=== PATIENT | male | born 1970 | race Caucasian/White ===

== ENCOUNTER 2024-09-10 08:26 | Emergency (ER) | payer BC ==
[2024-09-10] MEDS ORDERED: Lidocaine 4% Patch ONE (08:50)
[2024-09-10] MEDS ORDERED: Cyclobenzaprine 10 MG TAB ONE (08:50)
== END 2024-09-10 09:00 | disposition home or self-care (01) ==
LOC: MADERS 08:26
DX: S16.1XXA Strain of muscle, fascia and tendon at neck level, initial encounter (principal); E11.9 Type 2 diabetes mellitus without complications; E78.00 Pure hypercholesterolemia, unspecified; I10 Essential (primary) hypertension; Z79.84 Long term (current) use of oral hypoglycemic drugs; Z79.899 Other long term (current) drug therapy; X58.XXXA Exposure to other specified factors, initial encounter
CPT/HCPCS: 99283

== ENCOUNTER 2024-09-12 08:17 | Emergency (ER) | payer BC ==
[2024-09-12] MEDS ORDERED: Ondansetron PF 4 MG/2 ML Vial ONE (08:51)
[2024-09-12] MEDS ORDERED: Methocarbamol 1 GM (10 mL) VIAL ONE (08:51)
[2024-09-12] MEDS ORDERED: Morphine 4 MG/ML VIAL ONE (08:52)
[2024-09-12] MEDS ORDERED: Sodium Chloride 0.9% 100 ML ONE (08:52)
[2024-09-12] MEDS ORDERED: Lidocaine 4% Patch ONE (08:52)
[2024-09-12] MEDS ORDERED: Sodium Chloride 0.9% 1,000 ML ONE (08:52)
[2024-09-12] MEDS ORDERED: Iopamidol 370 76% 100 ML VIAL ONE (09:00)
[2024-09-12 09:09] LABS: Hematocrit 54.2 % (42.0-52.0); Hemoglobin 16.6 g/dL (14.0-18.0); Mean Corpuscular HGB CONC 30.7 g/dL (32.0-36.0); Mean Corpuscular Hemoglobin 29.1 pg (27.0-31.0); Mean Corpuscular Volume 94.9 fl (78.0-98.0); Mean Platelet Volume 6.6 fL (7.4-10.4); Platelet Count 318 10x3/uL (130-400); RBC Distribution Width 12.4 % (11.5-14.5); Red Blood Cell (RBC) Count 5.71 mill/uL (4.70-6.10); White Blood Cell (WBC) Count 11.5 10x3/uL (4.8-10.8)
[2024-09-12 09:18] LABS: Troponin I Less than 0.010 ng/mL (< 0.028)
[2024-09-12 09:23] LABS: ALT (SGPT) 37 U/L (8-55); AST (SGOT) 39 U/L (5-34); Albumin 3.5 g/dL (3.5-5.0); Alkaline Phosphatase 82 U/L (40-110); Anion Gap 30 mmol/L (10-20); BUN (Urea Nitrogen) 18 mg/dL (8.4-25.7); Bilirubin, Total 0.5 mg/dL (0.2-1.2); Calc. Creatinine Clearance 0 mL/min (70-130); Calcium 9.3 mg/dL (7.8-10.44); Carbon Dioxide 12 mmol/L (22-29); Chloride 100 mmol/L (98-107); Estimated GFR 78; Globulin 4.1 g/dL (2.4-3.5); Glucose 126 mg/dL (70-105); Potassium 4.9 mmol/L (3.5-5.1); Protein, Total 7.6 g/dL (6.0-8.3); Sodium 137 mmol/L (136-145)
[2024-09-12 09:52] LABS: Band 4 % (5-11); Lymphocytes 6 % (21-51); MDiff Complete? YES; Monocytes 5 % (0-10); Neutrophil 85 % (42-75); Platelet Adequacy Comment Appears Adequate
[2024-09-12 10:36] LABS: Base Excess-Venous -13.5 mmol/L (-2.0 to 3.0); Bicarbonate (HCO3v) 15.7 mmol/L (22.0-28.0); CO2 Tension (PvCO2) 46.5 mmHg (42.0-51.0); Calcium, Ionized 1.17 mmol/L (1.15-1.33); Chloride 107 mmol/L (98-107); Hemoglobin - Calc 18.9 g/dL (14.0-18.0); Potassium 4.4 mmol/L (3.5-5.1); Sodium 135 mmol/L (138-145); T. Carbon Dioxide 17.1 mmol/L (22.0-28.0); vO2 Saturation-calc 85.8 % (60.0-85.0)
[2024-09-12 11:08] LABS: Bilirubin Small (Negative); Blood, Urine Small (Negative); Clarity Clear (Clear); Glucose, Urine (Dipstick) 500 mg/dL (Negative); Ketone, Urine > or equal to 80 mg/dL (Negative); Leukocyte Negative (Negative); Nitrite Negative (Negative); Protein, Urine (Dipstick) 100 mg/dL (Neg-Trace); Urobilinogen 0.2 mg/dL (Less than 2); pH, Urine 5.5 (5.0-9.0)
[2024-09-12 11:10] LABS: Specific Gravity, Urine 1.038 (1.002-1.036)
[2024-09-12 11:17] LABS: Amphetamine Not Detected (NotDetected); Bacteria/HPF None Seen HPF (None Seen); Barbiturates Screen Not Detected (NotDetected); Benzodiazepine Screen Not Detected (NotDetected); CAUTI Indications for Culture < 2yrs of age; Cocaine Metabolite Screen Not Detected (NotDetected); Methadone Not Detected (NotDetected); Methamphetamine Not Detected (NotDetected); Opiate Screen Detected (NotDetected); Oxycodone Screen Not Detected (NotDetected); Phencyclidine (PCP) Not Detected (NotDetected); RBC/HPF 0-3 HPF (0-3); Squamous Epithelial 0-3 HPF (0-3); THC/Cannabinoid Screen Not Detected (NotDetected); Tricyclic Screen Not Detected (NotDetected); WBC/HPF 0-3 HPF (0-3)
[2024-09-12 11:18] LABS: Urine Culture Reflex Yes Yes
== END 2024-09-12 12:20 | disposition home or self-care (01) ==
LOC: MADERS 08:17
DX: M54.2 Cervicalgia (principal); E11.10 Type 2 diabetes mellitus with ketoacidosis without coma; E78.5 Hyperlipidemia, unspecified; I10 Essential (primary) hypertension; Z86.73 Personal history of transient ischemic attack (TIA), and cerebral infarction without residual deficits; Z79.82 Long term (current) use of aspirin; Z79.84 Long term (current) use of oral hypoglycemic drugs; Z79.899 Other long term (current) drug therapy
CPT/HCPCS: 72126; 80053; 80306; 80307; 81001; 82330; 82803; 84484; 85025; 87086; 93005; 96365; 96375; J2272; J2405; J2800; J7030; Q9967

== ENCOUNTER 2024-10-04 13:38 | Inpatient (IN) | payer BC ==
[2024-10-04 14:06] VITALS: BMI 20.9
[2024-10-04] MEDS ORDERED: Benzocaine/Menthol 1 LOZ LOZ PO PRN (14:49)
[2024-10-04] MEDS ORDERED: traMADol HCl 50 MG TAB PO PRN (14:49)
[2024-10-04] MEDS ORDERED: Glucagon 1 MG/ML KIT IM PRN (14:51)
[2024-10-04] MEDS ORDERED: Dextrose 50% Abboject 50 ML SYRINGE SLOW IVP PRN (14:51)
[2024-10-04] MEDS ORDERED: Insulin Regular, Human 100 UNIT/ML 10 ML VIAL SC PRN (14:51)
[2024-10-04] MEDS ORDERED: DICLOFENAC SODIUM 25 MG PO PRN (15:12)
[2024-10-04] MEDS: Cefepime 2 GM VIAL IVPB SCH (15:42)
[2024-10-04] MEDS: Cefepime 2 GM in Sodium Chloride 0.9% 100 ML IVPB SCH (17:22)
[2024-10-04] MEDS: Insulin Regular, Human 100 UNIT/ML 10 ML VIAL SC PRN (17:23)
[2024-10-04] MEDS: Enoxaparin 40 MG (0.4 mL) SYRINGE SC SCH (20:19)
[2024-10-05] MEDS: Acetaminophen 325 MG TAB PO PRN (05:39)
[2024-10-05] MEDS: Pantoprazole 40 MG DR.TAB PO SCH (08:25)
[2024-10-05] MEDS: glipiZIDE 5 MG TAB PO SCH (08:25)
[2024-10-05] MEDS: Empagliflozin 25 MG TAB PO SCH (08:26)
[2024-10-05] MEDS: Aspirin Chewable 81 MG TAB PO SCH (08:26)
[2024-10-05] MEDS: traMADol HCl 50 MG TAB PO PRN (19:23)
[2024-10-05] MEDS: Atorvastatin Calcium 40 MG TAB PO SCH (20:36)
[2024-10-09] MEDS ORDERED: Senokot S 8.6-50 MG TAB PO PRN (11:55)
[2024-10-10] MEDS: metFORMIN 850 MG TAB PO SCH (17:00)
[2024-10-11 05:30] LABS: Hematocrit 41.5 % (42.0-52.0); Hemoglobin 13.1 g/dL (14.0-18.0); Mean Corpuscular HGB CONC 31.6 g/dL (32.0-36.0); Mean Corpuscular Hemoglobin 29.6 pg (27.0-31.0); Mean Corpuscular Volume 93.9 fl (78.0-98.0); Platelet Count 589 10x3/uL (130-400); RBC Distribution Width 13.2 % (11.5-14.5); Red Blood Cell (RBC) Count 4.43 mill/uL (4.70-6.10); White Blood Cell (WBC) Count 11.3 10x3/uL (4.8-10.8)
[2024-10-11 05:48] LABS: Anion Gap 15 mmol/L (10-20); BUN (Urea Nitrogen) 17 mg/dL (8.4-25.7); Calc. Creatinine Clearance 119 mL/min (70-130); Calcium 9.1 mg/dL (7.8-10.44); Carbon Dioxide 23 mmol/L (22-29); Chloride 101 mmol/L (98-107); Estimated GFR 104; Glucose 197 mg/dL (70-105); Potassium 4.1 mmol/L (3.5-5.1); Sodium 135 mmol/L (136-145)
[2024-10-11] MEDS: TIRZEPATIDE 12.5 MG/0.5 ML SC SCH (08:25)
[2024-10-14] MEDS: Lantiseptic Ointment 130 GM JAR TOP PRN (09:54)
[2024-10-14] MEDS: Lantiseptic Ointment 130 GM JAR TOP SCH (20:25)
[2024-10-18 05:28] LABS: Anion Gap 16 mmol/L (10-20); BUN (Urea Nitrogen) 21 mg/dL (8.4-25.7); Calc. Creatinine Clearance 116 mL/min (70-130); Calcium 9.5 mg/dL (7.8-10.44); Carbon Dioxide 25 mmol/L (22-29); Chloride 104 mmol/L (98-107); Estimated GFR 103; Glucose 119 mg/dL (70-105); Potassium 4.2 mmol/L (3.5-5.1); Sodium 141 mmol/L (136-145)
[2024-10-18 05:47] LABS: Hematocrit 43.1 % (42.0-52.0); Hemoglobin 13.5 g/dL (14.0-18.0); Mean Corpuscular HGB CONC 31.3 g/dL (32.0-36.0); Mean Corpuscular Hemoglobin 29.3 pg (27.0-31.0); Mean Corpuscular Volume 93.7 fl (78.0-98.0); Mean Platelet Volume 6.4 fL (7.4-10.4); Platelet Count 437 10x3/uL (130-400); RBC Distribution Width 13.2 % (11.5-14.5); White Blood Cell (WBC) Count 8.9 10x3/uL (4.8-10.8)
[2024-10-21] MEDS: Meloxicam 7.5 MG TAB PO SCH (15:42)
[2024-10-22] MEDS: Meloxicam 7.5 MG TAB PO SCH (09:13)
[2024-10-25 06:34] LABS: Hematocrit 40.4 % (42.0-52.0); Hemoglobin 12.8 g/dL (14.0-18.0); Mean Corpuscular HGB CONC 31.7 g/dL (32.0-36.0); Mean Corpuscular Hemoglobin 29.9 pg (27.0-31.0); Mean Corpuscular Volume 94.3 fl (78.0-98.0); Mean Platelet Volume 6.3 fL (7.4-10.4); Platelet Count 361 10x3/uL (130-400); RBC Distribution Width 13.4 % (11.5-14.5); Red Blood Cell (RBC) Count 4.29 mill/uL (4.70-6.10); White Blood Cell (WBC) Count 8.9 10x3/uL (4.8-10.8)
[2024-10-25 06:49] LABS: Anion Gap 15 mmol/L (10-20); BUN (Urea Nitrogen) 16 mg/dL (8.4-25.7); Calc. Creatinine Clearance 136 mL/min (70-130); Calcium 9.2 mg/dL (7.8-10.44); Carbon Dioxide 23 mmol/L (22-29); Chloride 104 mmol/L (98-107); Estimated GFR 107; Glucose 133 mg/dL (70-105); Potassium 4.1 mmol/L (3.5-5.1); Sodium 138 mmol/L (136-145)
[2024-10-26 10:46] VITALS: BMI 22.1
[2024-10-30 19:07] VITALS: BP 114/77
[2024-10-31 07:10] VITALS: TEMP 97.4
== END 2024-10-31 09:15 | disposition home or self-care (01) | DRG 945 ==
LOC: MADMS 13:38
PROVIDERS: ADMIT Family Medicine; ATTEND Family Medicine
PROC: F07Z9ZZ Gait Training/Functional Ambulation Treatment (ICD-10-PCS; principal; 2024-10-04)
DX: R53.81 Other malaise (principal); L89.153 Pressure ulcer of sacral region, stage 3; R78.81 Bacteremia; M86.8X7 Other osteomyelitis, ankle and foot; E11.69 Type 2 diabetes mellitus with other specified complication; B95.61 Methicillin susceptible Staphylococcus aureus infection as the cause of diseases classified elsewhere; E11.621 Type 2 diabetes mellitus with foot ulcer; L97.519 Non-pressure chronic ulcer of other part of right foot with unspecified severity; I10 Essential (primary) hypertension; R26.9 Unspecified abnormalities of gait and mobility; M17.11 Unilateral primary osteoarthritis, right knee; Z86.73 Personal history of transient ischemic attack (TIA), and cerebral infarction without residual deficits
CPT/HCPCS: 36415; 36416; 80048; 85027; J0692; J1650; J1815

== ENCOUNTER 2024-11-23 17:25 | Inpatient (IN) | payer BC ==
[2024-11-23] MEDS ORDERED: traMADol HCl 50 MG TAB PO PRN (21:39)
[2024-11-23] MEDS ORDERED: Acetaminophen 500 MG TAB PO PRN (21:39)
[2024-11-23] MEDS ORDERED: Dextrose 50% Abboject 50 ML SYRINGE SLOW IVP PRN (21:41)
[2024-11-23] MEDS ORDERED: Glucagon 1 MG/ML KIT IM PRN (21:41)
[2024-11-23 23:40] VITALS: BMI 22.4
[2024-11-24 05:08] LABS: #Basophils 0.2 thou/uL (0.0-0.2); #Eosinophils 0.1 thou/uL (0.0-0.7); #Lymphocytes 3.5 thou/uL (1.20-3.40); #Monocytes 1.3 thou/uL (0.11-0.59); #Neutrophils 6.8 thou/uL (1.40-6.50); %Basophils 1.3 % (0.0-1.0); %Lymphocytes 29.6 % (21.0-51.0); %Monocytes 11.1 % (0.0-10.0); %Neutrophils 57.1 % (42.0-75.0); Hematocrit 40.5 % (42.0-52.0); Hemoglobin 13.2 g/dL (14.0-18.0); Mean Corpuscular HGB CONC 32.6 g/dL (32.0-36.0); Mean Corpuscular Hemoglobin 29.7 pg (27.0-31.0); Mean Corpuscular Volume 90.8 fl (78.0-98.0); Mean Platelet Volume 5.7 fL (7.4-10.4); Platelet Count 837 10x3/uL (130-400); RBC Distribution Width 14.7 % (11.5-14.5); Red Blood Cell (RBC) Count 4.46 mill/uL (4.70-6.10)
[2024-11-24 05:25] LABS: ALT (SGPT) 22 U/L (Less than 45); AST (SGOT) 26 U/L (11-34); Albumin 3.4 g/dL (3.1-4.5); Alkaline Phosphatase 99 U/L (40-110); Anion Gap 14 mmol/L (10-20); BUN (Urea Nitrogen) 25 mg/dL (8.4-25.7); Bilirubin, Total 0.3 mg/dL (0.3-1.2); Calc. Creatinine Clearance 148 mL/min (70-130); Calcium 9.5 mg/dL (7.8-10.44); Carbon Dioxide 21 mmol/L (22-29); Chloride 106 mmol/L (98-107); Estimated GFR 110; Globulin 4.2 g/dL (2.4-3.5); Glucose 173 mg/dL (70-105); Potassium 4.1 mmol/L (3.5-5.1); Protein, Total 7.6 g/dL (6.0-8.3); Sodium 137 mmol/L (136-145)
[2024-11-24] MEDS ORDERED: Polyethylene Glycol 3350 17 GM Packet PO PRN (06:02)
[2024-11-24] MEDS ORDERED: Ondansetron ODT 4 MG TAB PO PRN (06:02)
[2024-11-24] MEDS: Enoxaparin 40 MG (0.4 mL) SYRINGE SC SCH (08:13)
[2024-11-24] MEDS: Aspirin Chewable 81 MG TAB PO SCH (08:13)
[2024-11-24] MEDS: Pantoprazole 40 MG DR.TAB PO SCH (08:13)
[2024-11-24] MEDS: Empagliflozin 25 MG TAB PO SCH (08:13)
[2024-11-24] MEDS: glipiZIDE 5 MG TAB PO SCH (08:13)
[2024-11-24] MEDS: metFORMIN 850 MG TAB PO SCH ×2 (08:14→20:03)
[2024-11-24] MEDS: FLU (Fluarix Triv) TS24-25(6MOS UP)/PF 45 MCG/0.5 ML Syringe IM ONE (08:15)
[2024-11-24] MEDS: Insulin Regular, Human 100 UNIT/ML 10 ML VIAL SC PRN (08:41)
[2024-11-24] MEDS ORDERED: Atorvastatin Calcium 40 MG TAB PO SCH (09:00)
[2024-11-24] MEDS: DAPTOmycin 500 MG in Sodium Chloride 0.9% 100 ML IVPB SCH (14:28)
[2024-11-26] MEDS: DICLOFENAC 25 MG PO SCH (11:54)
[2024-11-29] MEDS ORDERED: Acetaminophen 500 MG TAB PO PRN (13:05)
[2024-12-01 04:58] LABS: #Basophils 0.2 thou/uL (0.0-0.2); #Eosinophils 0.2 thou/uL (0.0-0.7); #Lymphocytes 3.2 thou/uL (1.20-3.40); #Monocytes 0.9 thou/uL (0.11-0.59); #Neutrophils 3.7 thou/uL (1.40-6.50); %Basophils 2.1 % (0.0-1.0); %Eosinophils 2.3 % (0.0-10.0); %Lymphocytes 38.9 % (21.0-51.0); %Monocytes 11.3 % (0.0-10.0); %Neutrophils 45.3 % (42.0-75.0); Hematocrit 39.5 % (42.0-52.0); Hemoglobin 12.6 g/dL (14.0-18.0); Mean Corpuscular HGB CONC 31.9 g/dL (32.0-36.0); Mean Corpuscular Hemoglobin 29.7 pg (27.0-31.0); Mean Platelet Volume 6.6 fL (7.4-10.4); Platelet Count 459 10x3/uL (130-400); Red Blood Cell (RBC) Count 4.24 mill/uL (4.70-6.10); White Blood Cell (WBC) Count 8.2 10x3/uL (4.8-10.8)
[2024-12-01 05:17] LABS: ALT (SGPT) 20 U/L (Less than 45); AST (SGOT) 20 U/L (11-34); Albumin 3.4 g/dL (3.1-4.5); Alkaline Phosphatase 102 U/L (40-110); Anion Gap 17 mmol/L (10-20); BUN (Urea Nitrogen) 20 mg/dL (8.4-25.7); Bilirubin, Total 0.2 mg/dL (0.3-1.2); CK (CPK) 24 U/L (30-200); Calc. Creatinine Clearance 152 mL/min (70-130); Calcium 9.1 mg/dL (7.8-10.44); Carbon Dioxide 22 mmol/L (22-29); Chloride 104 mmol/L (98-107); Estimated GFR 111; Globulin 3.8 g/dL (2.4-3.5); Glucose 138 mg/dL (70-105); Protein, Total 7.2 g/dL (6.0-8.3); Sodium 139 mmol/L (136-145)
[2024-12-05] MEDS ORDERED: Dextrose 50% Abboject 50 ML SYRINGE SLOW IVP PRN (09:30)
[2024-12-05] MEDS ORDERED: Glucagon 1 MG/ML KIT IM PRN (09:30)
[2024-12-05] MEDS ORDERED: Acetaminophen 500 MG TAB PO PRN (09:30)
[2024-12-05] MEDS: DAPTOmycin 500 MG in Sodium Chloride 0.9% 100 ML IVPB SCH (14:58)
[2024-12-05] MEDS: Sodium Chloride 0.9% 100 ML ONE (14:58)
[2024-12-09 05:30] LABS: Hematocrit 42.8 % (42.0-52.0); Hemoglobin 13.3 g/dL (14.0-18.0); Mean Corpuscular HGB CONC 31.2 g/dL (32.0-36.0); Mean Corpuscular Hemoglobin 29.7 pg (27.0-31.0); Mean Corpuscular Volume 95.2 fl (78.0-98.0); Mean Platelet Volume 7.5 fL (7.4-10.4); Platelet Count 232 10x3/uL (130-400); RBC Distribution Width 15.4 % (11.5-14.5); Red Blood Cell (RBC) Count 4.49 mill/uL (4.70-6.10); White Blood Cell (WBC) Count 7.6 10x3/uL (4.8-10.8)
[2024-12-09 05:51] LABS: Anion Gap 18 mmol/L (10-20); BUN (Urea Nitrogen) 20 mg/dL (8.4-25.7); CK (CPK) 24 U/L (30-200); Calc. Creatinine Clearance 149 mL/min (70-130); Calcium 9.2 mg/dL (7.8-10.44); Carbon Dioxide 22 mmol/L (22-29); Chloride 104 mmol/L (98-107); Estimated GFR 110; Glucose 123 mg/dL (70-105); Potassium 4.2 mmol/L (3.5-5.1); Sodium 140 mmol/L (136-145)
[2024-12-09] MEDS: DAPTOmycin 500 MG in Sodium Chloride 0.9% 100 ML IVPB SCH (11:05)
[2024-12-10] MEDS: DAPTOmycin 500 MG in Sodium Chloride 0.9% 100 ML IVPB SCH (08:44)
[2024-12-10] MEDS ORDERED: DAPTOmycin 500 MG in Sodium Chloride 0.9% 100 ML IVPB SCH (15:00)
[2024-12-15 05:20] LABS: Band 1 % (5-11); Eosinophils 6 % (0-10); Hemoglobin 13.1 g/dL (14.0-18.0); Lymphocytes 39 % (21-51); MDiff Complete? YES; Mean Corpuscular HGB CONC 31.1 g/dL (32.0-36.0); Mean Corpuscular Hemoglobin 29.5 pg (27.0-31.0); Mean Corpuscular Volume 94.7 fl (78.0-98.0); Mean Platelet Volume 7.4 fL (7.4-10.4); Monocytes 10 % (0-10); Neutrophil 44 % (42-75); Platelet Count 267 10x3/uL (130-400); RBC Distribution Width 15.3 % (11.5-14.5); Red Blood Cell (RBC) Count 4.44 mill/uL (4.70-6.10); White Blood Cell (WBC) Count 8.2 10x3/uL (4.8-10.8)
[2024-12-15 05:26] LABS: Anion Gap 16 mmol/L (10-20); BUN (Urea Nitrogen) 19 mg/dL (8.4-25.7); Calc. Creatinine Clearance 126 mL/min (70-130); Carbon Dioxide 26 mmol/L (22-29); Chloride 102 mmol/L (98-107); Potassium 3.9 mmol/L (3.5-5.1); Sodium 140 mmol/L (136-145)
[2024-12-15 05:27] LABS: CK (CPK) 28 U/L (30-200); Estimated GFR 103; Glucose 126 mg/dL (70-105)
[2024-12-17] MEDS: Meloxicam 7.5 MG TAB PO PRN (13:49)
[2024-12-20 10:48] VITALS: BMI 23.8
[2024-12-20] MEDS: DAPTOmycin 500 MG in Sodium Chloride 0.9% 100 ML IVPB SCH (11:54)
[2024-12-21] MEDS: Meloxicam 7.5 MG TAB PO SCH (08:56)
[2024-12-22 05:25] LABS: Band 1 % (5-11); Hematocrit 42.9 % (42.0-52.0); Hemoglobin 13.3 g/dL (14.0-18.0); Lymphocytes 41 % (21-51); MDiff Complete? YES; Mean Corpuscular HGB CONC 30.9 g/dL (32.0-36.0); Mean Corpuscular Hemoglobin 29.6 pg (27.0-31.0); Mean Corpuscular Volume 95.7 fl (78.0-98.0); Monocytes 13 % (0-10); Neutrophil 45 % (42-75); Platelet Count 330 10x3/uL (130-400); RBC Distribution Width 14.8 % (11.5-14.5); Red Blood Cell (RBC) Count 4.48 mill/uL (4.70-6.10); White Blood Cell (WBC) Count 7.6 10x3/uL (4.8-10.8)
[2024-12-22 05:32] LABS: Anion Gap 17 mmol/L (10-20); BUN (Urea Nitrogen) 20 mg/dL (8.4-25.7); CK (CPK) 30 U/L (30-200); Calc. Creatinine Clearance 147 mL/min (70-130); Calcium 8.7 mg/dL (7.8-10.44); Carbon Dioxide 24 mmol/L (22-29); Chloride 105 mmol/L (98-107); Estimated GFR 107; Glucose 132 mg/dL (70-105); Sodium 142 mmol/L (136-145)
[2024-12-24 13:26] VITALS: BP 132/74; TEMP 98.1
== END 2024-12-24 13:31 | disposition home or self-care (01) | DRG 951 ==
LOC: MADMS 18:53
PROVIDERS: ADMIT Family Medicine; ATTEND Family Medicine
DX: Z46.89 Encounter for fitting and adjustment of other specified devices (principal); E11.621 Type 2 diabetes mellitus with foot ulcer; E78.5 Hyperlipidemia, unspecified; I10 Essential (primary) hypertension; Z79.84 Long term (current) use of oral hypoglycemic drugs; Z79.82 Long term (current) use of aspirin; Z98.890 Other specified postprocedural states; Z87.891 Personal history of nicotine dependence; Z79.4 Long term (current) use of insulin; Z86.73 Personal history of transient ischemic attack (TIA), and cerebral infarction without residual deficits
CPT/HCPCS: 36415; 36416; 80048; 80053; 82550; 85025; 85027; 86140; 97602; J0878; J1650; J1815